=== PATIENT | female | born 1955 | race Hispanic/Latino ===

== ENCOUNTER → 2017-01-07 | Outpatient (CLI) | payer OTHER ==
[~2017-01-07] VITALS: Ht 157.5 cm; Wt 72.6 kg
[~2017-01-07] MED LIST: ACTOS15 MG PO; ACTOS30 MG PO; ADVIL200 MG PO; GLUCOPHAGE1000 MG PO; JANUVIA100 MG PO; LIPITOR20 MG PO; LISINOPRIL5 MG PO; NESINA25 MG PO; OMEPRAZOLE40 M1 PO; SIMVASTATIN40 MG PO; VITAMIN D PO
[2017-01-07 08:33] LABS: POINT-OF-CARE METER ID UU13113694
[2017-01-07 09:06] LABS: CHLORIDE 106 mEq/L (99-109); POTASSIUM 3.9 mEq/L (3.7-5.4); SODIUM 140 mEq/L (136-147)
[2017-01-07 09:07] LABS: GLUCOSE 209 mg/dL (70-99)
[2017-01-07 09:09] LABS: ANION GAP 11 MEQ/L (2-14)
[2017-01-07 09:11] LABS: GFR ESTIMATE (CALCULATED) > 59 mL/min/
[2017-01-07 09:12] LABS: UREA NITROGEN (BUN) 13 mg/dL (9-23)
[2017-01-07 11:03] LABS: POINT-OF-CARE METER ID UU13113819; POINT-OF-CARE USER ID 515036437
== END | disposition home or self-care (01) ==
LOC: AMB 07:45
PROVIDERS: Anesthesiology; Internal Medicine Gastroenterology
DX: C16.9 Malignant neoplasm of stomach, unspecified (principal); K25.9 Gastric ulcer, unspecified as acute or chronic, without hemorrhage or perforation; K86.2 Cyst of pancreas; E11.9 Type 2 diabetes mellitus without complications; E78.00 Pure hypercholesterolemia, unspecified; I10 Essential (primary) hypertension; K21.9 Gastro-esophageal reflux disease without esophagitis; Z79.84 Long term (current) use of oral hypoglycemic drugs
CPT/HCPCS: 80048; 82948; 93005; C1726; J0330; J2250; J2405; J3010

== ENCOUNTER 2017-09-02 09:12 | Emergency (ER) | payer OTHER ==
[~2017-09-02] VITALS: Ht 157.5 cm; Wt 61.9 kg
[2017-09-02 10:11] LABS: HEMATOCRIT 33.9 % (36.0-46.0); HEMOGLOBIN 11.2 G/DL (11.9-15.5); MCH 30.3 PG (29.0-34.0); MCV 91.6 FL (83-99); PLATELET COUNT 233 K/uL (156-360); RBC DIS.WIDTH-CV 13.5 % (11.8-14.6); RBC DIS.WIDTH-SD 45.3 % (39-53); WHITE BLOOD COUNT 6.3 K/uL (4.1-10.2)
[2017-09-02 10:22] LABS: ALBUMIN 4.3 g/dL (3.2-4.8); CHLORIDE 102 mEq/L (99-109); POTASSIUM 4.5 mEq/L (3.7-5.4); SODIUM 137 mEq/L (136-147)
[2017-09-02 10:25] LABS: GLUCOSE 113 mg/dL (70-99); TOTAL PROTEIN 7.6 g/dL (6.4-8.3)
[2017-09-02 10:26] LABS: TOTAL BILIRUBIN 0.4 mg/dL (0.0-1.0)
[2017-09-02 10:28] LABS: ALKALINE PHOSPHATASE 111 IU/L (3-129); CREATININE 1.1 mg/dL (0.6-1.3); GFR ESTIMATE (CALCULATED) 54 mL/min/
[2017-09-02 10:29] LABS: UREA NITROGEN (BUN) 13 mg/dL (9-23)
[2017-09-02 10:30] LABS: AST (GOT) 15 IU/L (2-34)
[2017-09-02 10:31] LABS: ALT (GPT) 11 IU/L (3-49)
[2017-09-02 11:25] LABS: APPEARANCE CLEAR ((CLEAR)); BILIRUBIN NEGATIVE; BLOOD NEGATIVE; COLOR COLORLESS ((YELLOW)); GLUCOSE (STRIP) NEGATIVE; KETONES NEGATIVE; LEUKOCYTES NEGATIVE; NITRITE NEGATIVE; PROTEIN (STRIP) NEGATIVE; SPECIFIC GRAVITY 1.017 (1.000-1.030); UCUL ADDED? NO; UROBILINOGEN 0.2 MG/DL (0.2-1.0)
[2017-09-02 11:57] VITALS: BP 115/62
== END 2017-09-02 12:37 | disposition home or self-care (01) ==
LOC: EME 09:12
DX: R18.8 Other ascites (principal); N83.9 Noninflammatory disorder of ovary, fallopian tube and broad ligament, unspecified; Z85.028 Personal history of other malignant neoplasm of stomach; E78.5 Hyperlipidemia, unspecified; E11.9 Type 2 diabetes mellitus without complications; Z79.84 Long term (current) use of oral hypoglycemic drugs; Z87.442 Personal history of urinary calculi; Z88.5 Allergy status to narcotic agent; Z88.4 Allergy status to anesthetic agent
CPT/HCPCS: 80053; 81003; 85027; 99281; 99284

== ENCOUNTER → 2017-11-11 | Outpatient (CLI) | payer OTHER ==
[~2017-11-11] MED LIST changes: +DILAUDID2 MG PO; +MS CONTIN,ORAMO15 M1 PO
== END | disposition home or self-care (01) ==
LOC: RAD 07:59
PROC: 0W9G3ZZ Drainage of Peritoneal Cavity, Percutaneous Approach (ICD-10-PCS; principal; 2017-11-11)
DX: R18.8 Other ascites (principal); C16.9 Malignant neoplasm of stomach, unspecified
CPT/HCPCS: 49083; 88108

== ENCOUNTER 2017-11-25 09:03 | Inpatient (IN) | payer OTHER ==
[~2017-11-25] VITALS: Ht 157.5 cm; Wt 55.1 kg
[2017-11-25 09:33] LABS: BASOPHIL (%) 0.3 % (0-1); EOSINOPHIL (%) 1.6 % (0-5); EOSINOPHIL COUNT 0.1 K/uL (0-0.3); HEMATOCRIT 38.9 % (36.0-46.0); HEMOGLOBIN 12.5 G/DL (11.9-15.5); IMMATURE GRANULOCYTE (%) 0.3 % (0.0-0.7); LYMPHOCYTE (%) 11.9 % (15-42); LYMPHOCYTE COUNT 0.7 K/uL (1.0-2.8); MCH 27.8 PG (29.0-34.0); MCHC 32.1 G/DL (30.0-36.0); MCV 86.4 FL (83-99); MONOCYTE (%) 3.8 % (3-12); MONOCYTE COUNT 0.2 K/uL (0-0.8); NEUTROPHIL (%) 82.1 % (45-76); PLATELET COUNT 210 K/uL (156-360); RBC DIS.WIDTH-CV 16.6 % (11.8-14.6); RBC DIS.WIDTH-SD 51.2 % (39-53); WHITE BLOOD COUNT 6.1 K/uL (4.1-10.2)
[2017-11-25 09:40] LABS: INTER. NORMALIZED RATIO 1.1
[2017-11-25 09:42] LABS: PTT 30.6 SEC (25-37)
[2017-11-25 09:44] LABS: ALBUMIN 3.8 g/dL (3.2-4.8); CHLORIDE 106 mEq/L (99-109); POTASSIUM 4.3 mEq/L (3.7-5.4); SODIUM 142 mEq/L (136-147)
[2017-11-25 09:45] LABS: MAGNESIUM 1.7 mg/dL (1.3-2.7)
[2017-11-25 09:45] LABS: APPEARANCE CLOUDY ((CLEAR)); BILIRUBIN NEGATIVE; BLOOD NEGATIVE; COLOR YELLOW ((YELLOW)); GLUCOSE (STRIP) NEGATIVE; KETONES 20; LEUKOCYTES LARGE; NITRITE NEGATIVE; PROTEIN (STRIP) 30; SPECIFIC GRAVITY 1.019 (1.000-1.030); UROBILINOGEN 0.2 MG/DL (0.2-1.0)
[2017-11-25 09:47] LABS: GLUCOSE 123 mg/dL (70-99); TOTAL PROTEIN 7.2 g/dL (6.4-8.3)
[2017-11-25 09:48] LABS: TOTAL BILIRUBIN 0.5 mg/dL (0.0-1.0)
[2017-11-25 09:50] LABS: ALKALINE PHOSPHATASE 76 IU/L (3-129); CREATININE 1.4 mg/dL (0.6-1.3); GFR ESTIMATE (CALCULATED) 41 mL/min/
[2017-11-25 09:51] LABS: UREA NITROGEN (BUN) 27 mg/dL (9-23)
[2017-11-25 09:52] LABS: AST (GOT) 17 IU/L (2-34)
[2017-11-25 09:53] LABS: ALT (GPT) 11 IU/L (3-49)
[2017-11-25 09:54] LABS: LIPASE 20 U/L (1.0-51.0)
[2017-11-25 10:35] LABS: AMORPHOUS URATES CRYSTALS 1+; BACTERIA 2+ /HPF; EPITHELIAL CELLS 2+ /HPF; HYALINE CASTS 0-5 /LPF; MUCUS NONE SEEN /LPF; RED BLOOD CELLS 0-5 /HPF (0-5); UCUL ADDED? YES; WHITE BLOOD CELLS 30-40 /HPF (0-5)
[2017-11-25 18:25] VITALS: BP 122/76
[2017-11-25 18:27] VITALS: BP 122/76
[2017-11-25 19:30] VITALS: BP 130/82
[2017-11-26 00:24] VITALS: BP 127/69
[2017-11-26 05:55] LABS: BASOPHIL (%) 0.2 % (0-1); EOSINOPHIL (%) 2.4 % (0-5); EOSINOPHIL COUNT 0.1 K/uL (0-0.3); HEMATOCRIT 34.5 % (36.0-46.0); HEMOGLOBIN 11.1 G/DL (11.9-15.5); IMMATURE GRANULOCYTE (%) 0.2 % (0.0-0.7); LYMPHOCYTE (%) 20.9 % (15-42); LYMPHOCYTE COUNT 0.9 K/uL (1.0-2.8); MCH 27.8 PG (29.0-34.0); MCHC 32.2 G/DL (30.0-36.0); MCV 86.3 FL (83-99); MONOCYTE COUNT 0.3 K/uL (0-0.8); NEUTROPHIL (%) 70.3 % (45-76); NEUTROPHIL COUNT 3.2 K/uL (1.8-6.4); PLATELET COUNT 193 K/uL (156-360); RBC DIS.WIDTH-CV 16.6 % (11.8-14.6); RBC DIS.WIDTH-SD 51.4 % (39-53); WHITE BLOOD COUNT 4.5 K/uL (4.1-10.2)
[2017-11-26 06:20] LABS: ALBUMIN 3.4 G/DL (3.2-4.8); ALKALINE PHOSPHATASE 57 IU/L (3-129); ALT (GPT) 8 IU/L (3-49); AST (GOT) 13 IU/L (2-34); DIRECT BILIRUBIN 0.1 mg/dL (0.0-0.3); TOTAL BILIRUBIN 0.3 MG/DL (0.0-1.0); TOTAL PROTEIN 5.4 G/DL (6.4-8.3)
[2017-11-26 08:12] VITALS: BP 102/63
[2017-11-26 08:42] LABS: CHLORIDE 105 MEQ/L (99-109); CREATININE 1.1 MG/DL (0.6-1.3); GFR ESTIMATE (CALCULATED) 54 mL/min/; GLUCOSE 94 mg/dL (70-99); POTASSIUM 4.3 MEQ/L (3.7-5.4); SODIUM 139 MEQ/L (136-147); UREA NITROGEN (BUN) 21 mg/dL (9-23)
[2017-11-26 11:57] VITALS: BP 116/62
[2017-11-26 16:21] VITALS: BP 113/69
[2017-11-26 19:26] VITALS: BP 109/63
[2017-11-27] VITALS: BP 112/82
[2017-11-27 06:10] LABS: BASOPHIL (%) 0.4 % (0-1); EOSINOPHIL (%) 2.4 % (0-5); EOSINOPHIL COUNT 0.1 K/uL (0-0.3); HEMATOCRIT 37.8 % (36.0-46.0); HEMOGLOBIN 11.8 G/DL (11.9-15.5); IMMATURE GRANULOCYTE (%) 0.2 % (0.0-0.7); LYMPHOCYTE (%) 34.3 % (15-42); LYMPHOCYTE COUNT 1.6 K/uL (1.0-2.8); MCH 27.2 PG (29.0-34.0); MCHC 31.2 G/DL (30.0-36.0); MCV 87.1 FL (83-99); MONOCYTE (%) 5.8 % (3-12); MONOCYTE COUNT 0.3 K/uL (0-0.8); NEUTROPHIL (%) 56.9 % (45-76); NEUTROPHIL COUNT 2.6 K/uL (1.8-6.4); PLATELET COUNT 204 K/uL (156-360); RBC DIS.WIDTH-CV 16.9 % (11.8-14.6); RBC DIS.WIDTH-SD 53.2 % (39-53); RED BLOOD COUNT 4.34 M/uL (3.80-5.20); WHITE BLOOD COUNT 4.5 K/uL (4.1-10.2)
[2017-11-27 06:38] LABS: CHLORIDE 105 MEQ/L (99-109); CREATININE 1.1 MG/DL (0.6-1.3); GFR ESTIMATE (CALCULATED) 54 mL/min/; GLUCOSE 96 mg/dL (70-99); POTASSIUM 4.5 MEQ/L (3.7-5.4); SODIUM 141 MEQ/L (136-147); UREA NITROGEN (BUN) 12 mg/dL (9-23)
[2017-11-27 07:41] VITALS: BP 105/55
[2017-11-27 16:30] VITALS: BP 114/71
[2017-11-28 05:56] LABS: BASOPHIL (%) 0.5 % (0-1); EOSINOPHIL (%) 2.2 % (0-5); EOSINOPHIL COUNT 0.1 K/uL (0-0.3); HEMATOCRIT 36.3 % (36.0-46.0); HEMOGLOBIN 11.8 G/DL (11.9-15.5); IMMATURE GRANULOCYTE (%) 0.2 % (0.0-0.7); LYMPHOCYTE (%) 31.3 % (15-42); LYMPHOCYTE COUNT 1.3 K/uL (1.0-2.8); MCH 27.9 PG (29.0-34.0); MCHC 32.5 G/DL (30.0-36.0); MCV 85.8 FL (83-99); MONOCYTE (%) 7.1 % (3-12); MONOCYTE COUNT 0.3 K/uL (0-0.8); NEUTROPHIL (%) 58.7 % (45-76); NEUTROPHIL COUNT 2.4 K/uL (1.8-6.4); PLATELET COUNT 176 K/uL (156-360); RBC DIS.WIDTH-CV 16.7 % (11.8-14.6); RBC DIS.WIDTH-SD 51.5 % (39-53); RED BLOOD COUNT 4.23 M/uL (3.80-5.20); WHITE BLOOD COUNT 4.1 K/uL (4.1-10.2)
[2017-11-28 06:22] LABS: CHLORIDE 107 MEQ/L (99-109); CREATININE 1.2 MG/DL (0.6-1.3); GFR ESTIMATE (CALCULATED) 49 mL/min/; GLUCOSE 99 mg/dL (70-99); POTASSIUM 4.7 MEQ/L (3.7-5.4); SODIUM 141 MEQ/L (136-147); UREA NITROGEN (BUN) 11 mg/dL (9-23)
[2017-11-28 07:15] VITALS: BP 112/71
[2017-11-28 16:16] VITALS: BP 120/74
[2017-11-28 22:46] VITALS: BP 104/59
[2017-11-29 06:35] LABS: BASOPHIL (%) 0.4 % (0-1); EOSINOPHIL (%) 2.7 % (0-5); EOSINOPHIL COUNT 0.1 K/uL (0-0.3); HEMATOCRIT 39.2 % (36.0-46.0); HEMOGLOBIN 12.5 G/DL (11.9-15.5); IMMATURE GRANULOCYTE (%) 0.2 % (0.0-0.7); LYMPHOCYTE (%) 33.1 % (15-42); LYMPHOCYTE COUNT 1.6 K/uL (1.0-2.8); MCH 27.5 PG (29.0-34.0); MCHC 31.9 G/DL (30.0-36.0); MCV 86.2 FL (83-99); MONOCYTE (%) 7.7 % (3-12); MONOCYTE COUNT 0.4 K/uL (0-0.8); NEUTROPHIL (%) 55.9 % (45-76); NEUTROPHIL COUNT 2.7 K/uL (1.8-6.4); PLATELET COUNT 174 K/uL (156-360); RBC DIS.WIDTH-CV 16.9 % (11.8-14.6); RBC DIS.WIDTH-SD 52.6 % (39-53); RED BLOOD COUNT 4.55 M/uL (3.80-5.20); WHITE BLOOD COUNT 4.8 K/uL (4.1-10.2)
[2017-11-29 07:00] LABS: CHLORIDE 104 MEQ/L (99-109); CREATININE 1.2 MG/DL (0.6-1.3); GFR ESTIMATE (CALCULATED) 49 mL/min/; GLUCOSE 100 mg/dL (70-99); POTASSIUM 4.4 MEQ/L (3.7-5.4); SODIUM 139 MEQ/L (136-147); UREA NITROGEN (BUN) 11 mg/dL (9-23)
[2017-11-29 07:17] VITALS: BP 114/72
[2017-11-29] MEDS ORDERED: FAMOTIDINE20 MG PO (12:14)
[2017-11-29] MEDS ORDERED: BISAC-EVAC10 MG PR (12:14)
[2017-11-29] MEDS ORDERED: SENNA PLUS TAB1 EACH PO (12:14)
[2017-11-29] MEDS ORDERED: CIPRO500 MG PO (12:14)
[2017-11-29] MEDS ORDERED: POLYETHYLENE GL17 GM PO (12:14)
[2017-11-29] MEDS ORDERED: MORPHINE SULFAT15 M1 PO (12:14)
[2017-11-29] MEDS ORDERED: Tylenol Extra Streng PO (12:14)
[2017-11-29] MEDS ORDERED: DOCUSATE SODIU100 MG PO (12:14)
== END 2017-11-29 13:32 | disposition home health service (06) | DRG 375 ==
LOC: EME 09:03 → 5EAST 14:42 → EDOF 14:42 → ENRESERV 14:43 → 5EAST 18:11
PROVIDERS: Emergency Medicine; Internal Medicine
PROC: 0W9G30Z Drainage of Peritoneal Cavity with Drainage Device, Percutaneous Approach (ICD-10-PCS; principal; 2017-11-25)
DX: C78.6 Secondary malignant neoplasm of retroperitoneum and peritoneum (principal); R18.8 Other ascites; C16.9 Malignant neoplasm of stomach, unspecified; N17.9 Acute kidney failure, unspecified; C77.9 Secondary and unspecified malignant neoplasm of lymph node, unspecified; C78.7 Secondary malignant neoplasm of liver and intrahepatic bile duct; C79.61 Secondary malignant neoplasm of right ovary; C79.62 Secondary malignant neoplasm of left ovary; E11.9 Type 2 diabetes mellitus without complications; R10.0 Acute abdomen; K59.00 Constipation, unspecified; E78.00 Pure hypercholesterolemia, unspecified; E78.5 Hyperlipidemia, unspecified; I10 Essential (primary) hypertension; K21.9 Gastro-esophageal reflux disease without esophagitis; D64.9 Anemia, unspecified; E86.0 Dehydration; Z87.442 Personal history of urinary calculi; Z90.3 Acquired absence of stomach [part of]; Z88.5 Allergy status to narcotic agent; Z88.4 Allergy status to anesthetic agent; Z85.028 Personal history of other malignant neoplasm of stomach; Z82.49 Family history of ischemic heart disease and other diseases of the circulatory system
CPT/HCPCS: 49083; 74177; 76705; 80048; 80053; 80076; 81003; 82948; 83605; 83690; 83735; 85025; 85610; 85730; 87040; 87086; 93005; 99281; 99285; J0696; J1644; J3010; J7030; J7040; S0028

== ENCOUNTER 2017-12-04 20:33 | Inpatient (IN) | payer OTHER ==
[~2017-12-04] VITALS: Ht 157.5 cm; Wt 55.2 kg
[~2017-12-04 20:33] MED LIST changes: +BISAC-EVAC10 MG PR; +CIPRO500 MG PO; +DOCUSATE SODIU100 MG PO; +FAMOTIDINE20 MG PO; +MORPHINE SULFAT15 M1 PO; +POLYETHYLENE GL17 GM PO; +SENNA PLUS TAB1 EACH PO; +Tylenol Extra Streng PO
[2017-12-04 21:53] LABS: HEMATOCRIT 39.6 % (36.0-46.0); HEMOGLOBIN 12.9 G/DL (11.9-15.5); MCHC 32.6 G/DL (30.0-36.0); MCV 86.1 FL (83-99); PLATELET COUNT 225 K/uL (156-360); RBC DIS.WIDTH-CV 17.2 % (11.8-14.6); RBC DIS.WIDTH-SD 53.3 % (39-53); WHITE BLOOD COUNT 8.8 K/uL (4.1-10.2)
[2017-12-04 22:02] LABS: ALBUMIN 3.4 g/dL (3.2-4.8); CHLORIDE 102 mEq/L (99-109); POTASSIUM 4.8 mEq/L (3.7-5.4); SODIUM 136 mEq/L (136-147)
[2017-12-04 22:05] LABS: GLUCOSE 144 mg/dL (70-99); TOTAL PROTEIN 6.5 g/dL (6.4-8.3)
[2017-12-04 22:07] LABS: TOTAL BILIRUBIN 0.3 mg/dL (0.0-1.0)
[2017-12-04 22:08] LABS: ALKALINE PHOSPHATASE 77 IU/L (3-129); GFR ESTIMATE (CALCULATED) 29 mL/min/
[2017-12-04 22:09] LABS: UREA NITROGEN (BUN) 20 mg/dL (9-23)
[2017-12-04 22:10] LABS: AST (GOT) 18 IU/L (2-34)
[2017-12-04 22:11] LABS: ALT (GPT) 8 IU/L (3-49); CREATININE 1.9 mg/dL (0.6-1.3)
[2017-12-04 23:19] LABS: TROP-I INTERPRETATION NEGATIVE; TROPONIN-I 0.01 ng/mL (0.0-0.30)
[2017-12-05 00:17] LABS: LIPASE 17 U/L (1.0-51.0)
[2017-12-05] MEDS ORDERED: PEPCID20 MG PO (00:19)
[2017-12-05] MEDS ORDERED: TYLENOL EXTRA500 MG PO (00:21)
[2017-12-05 01:33] LABS: APPEARANCE SL.HAZY ((CLEAR)); BILIRUBIN NEGATIVE; BLOOD NEGATIVE; COLOR YELLOW ((YELLOW)); GLUCOSE (STRIP) NEGATIVE; KETONES 20; LEUKOCYTES TRACE; NITRITE NEGATIVE; PROTEIN (STRIP) 30; SPECIFIC GRAVITY 1.019 (1.000-1.030); UROBILINOGEN 0.2 MG/DL (0.2-1.0)
[2017-12-05 01:54] LABS: BACTERIA NONE SEEN /HPF; EPITHELIAL CELLS 2+ /HPF; HYALINE CASTS 15-20 /LPF; MUCUS 1+ /LPF; RED BLOOD CELLS 0-5 /HPF (0-5); UCUL ADDED? YES
[2017-12-05 03:15] VITALS: BP 110/63
[2017-12-05 07:00] VITALS: BP 104/68
[2017-12-05 08:59] LABS: BASOPHIL (%) 0.2 % (0-1); EOSINOPHIL (%) 1.4 % (0-5); EOSINOPHIL COUNT 0.1 K/uL (0-0.3); HEMATOCRIT 35.9 % (36.0-46.0); HEMOGLOBIN 11.3 G/DL (11.9-15.5); IMMATURE GRANULOCYTE (%) 0.4 % (0.0-0.7); MCH 27.5 PG (29.0-34.0); MCHC 31.5 G/DL (30.0-36.0); MCV 87.3 FL (83-99); MONOCYTE (%) 7.2 % (3-12); MONOCYTE COUNT 0.4 K/uL (0-0.8); NEUTROPHIL (%) 73.8 % (45-76); NEUTROPHIL COUNT 4.1 K/uL (1.8-6.4); PLATELET COUNT 209 K/uL (156-360); RBC DIS.WIDTH-CV 17.2 % (11.8-14.6); RBC DIS.WIDTH-SD 54.8 % (39-53); RED BLOOD COUNT 4.11 M/uL (3.80-5.20); WHITE BLOOD COUNT 5.6 K/uL (4.1-10.2)
[2017-12-05 09:31] LABS: CHLORIDE 103 MEQ/L (99-109); CREATININE 1.5 MG/DL (0.6-1.3); GFR ESTIMATE (CALCULATED) 38 mL/min/; GLUCOSE 73 mg/dL (70-99); POTASSIUM 5.1 MEQ/L (3.7-5.4); SODIUM 137 MEQ/L (136-147); UREA NITROGEN (BUN) 19 mg/dL (9-23)
[2017-12-05 12:39] VITALS: BP 106/66
[2017-12-05 15:46] LABS: TYPE OF FLUID PARACENTESIS
[2017-12-05 16:14] LABS: BODY FLUID GLUCOSE 72 MG/DL; BODY FLUID LDH 108 IU/L; BODY FLUID PROTEIN 3.4 G/DL
[2017-12-05 16:19] VITALS: BP 101/60
[2017-12-05 16:23] LABS: APPEARANCE CLEAR-YELLOW; BODY FLUID EOSINOPHILS 0 % (0-25); BODY FLUID RBC'S < 1000 /MM^3 (0-100); BODY FLUID WBC'S 59 /MM^3 (0-500); MONONUCLEAR WBC'S 82 %; POLYNUCLEAR WBC'S 18 % (0-25)
[2017-12-05 20:40] VITALS: BP 138/74
[2017-12-05 23:33] VITALS: BP 108/68
[2017-12-06 03:05] VITALS: BP 1214/65; BP 124/65
[2017-12-06 05:19] LABS: HEMATOCRIT 36.1 % (36.0-46.0); HEMOGLOBIN 11.2 G/DL (11.9-15.5); MCH 27.3 PG (29.0-34.0); MCV 87.8 FL (83-99); PLATELET COUNT 194 K/uL (156-360); RBC DIS.WIDTH-CV 17.6 % (11.8-14.6); RBC DIS.WIDTH-SD 56.8 % (39-53); RED BLOOD COUNT 4.11 M/uL (3.80-5.20); WHITE BLOOD COUNT 5.9 K/uL (4.1-10.2)
[2017-12-06 06:02] LABS: ALBUMIN 2.9 G/DL (3.2-4.8); ALKALINE PHOSPHATASE 50 IU/L (3-129); ALT (GPT) 6 IU/L (3-49); AST (GOT) 13 IU/L (2-34); CHLORIDE 103 MEQ/L (99-109); CREATININE 1.4 MG/DL (0.6-1.3); GFR ESTIMATE (CALCULATED) 41 mL/min/; GLUCOSE 75 mg/dL (70-99); SODIUM 137 MEQ/L (136-147); TOTAL BILIRUBIN 0.3 MG/DL (0.0-1.0); TOTAL PROTEIN 5.5 G/DL (6.4-8.3); UREA NITROGEN (BUN) 15 mg/dL (9-23)
[2017-12-06 08:45] VITALS: BP 123/71
[2017-12-06 15:02] VITALS: BP 119/74
[2017-12-06 19:30] VITALS: BP 125/70
[2017-12-07 00:02] VITALS: BP 124/71
[2017-12-07 06:34] LABS: CHLORIDE 104 MEQ/L (99-109); CREATININE 1.1 MG/DL (0.6-1.3); GFR ESTIMATE (CALCULATED) 54 mL/min/; GLUCOSE 98 mg/dL (70-99); POTASSIUM 4.1 MEQ/L (3.7-5.4); SODIUM 137 MEQ/L (136-147); UREA NITROGEN (BUN) 13 mg/dL (9-23)
[2017-12-07 08:55] VITALS: BP 160/76
[2017-12-07 11:38] VITALS: BP 116/69
[2017-12-07 15:18] VITALS: BP 103/62
[2017-12-08 00:43] VITALS: BP 118/75
[2017-12-08 04:53] LABS: HEMATOCRIT 37.4 % (36.0-46.0); HEMOGLOBIN 12.3 G/DL (11.9-15.5); MCH 28.3 PG (29.0-34.0); MCHC 32.9 G/DL (30.0-36.0); PLATELET COUNT 217 K/uL (156-360); RBC DIS.WIDTH-CV 17.2 % (11.8-14.6); RBC DIS.WIDTH-SD 53.7 % (39-53); RED BLOOD COUNT 4.35 M/uL (3.80-5.20); WHITE BLOOD COUNT 5.2 K/uL (4.1-10.2)
[2017-12-08 07:26] VITALS: BP 98/74
[2017-12-08 11:14] VITALS: BP 117/75
[2017-12-08 15:17] VITALS: BP 119/74
[2017-12-08 19:16] VITALS: BP 114/74
[2017-12-08 23:16] LABS: BODY FLUID PH 7.9 (())
[2017-12-09 00:10] VITALS: BP 113/70
[2017-12-09 08:10] VITALS: BP 110/77
[2017-12-09] MEDS ORDERED: ONDANSETRON ODT4 MG SL (09:01)
[2017-12-09] MEDS ORDERED: MAG-AL PLUS SUS30 ML PO (09:01)
[2017-12-09] MEDS ORDERED: FENTANYL1 EAC5 TD (10:04)
[2017-12-09 11:27] VITALS: BP 126/77
== END 2017-12-09 15:20 | disposition home health service (06) | DRG 375 ==
LOC: EME 20:33 → EDOF 12-05 01:37 → ENRESERV 12-05 01:42 → 4SOUTH 12-05 03:07
PROVIDERS: Internal Medicine; Student in an Organized Health Care Education/Training Program
PROC: 0W9G3ZZ Drainage of Peritoneal Cavity, Percutaneous Approach (ICD-10-PCS; principal; 2017-12-05)
PROC: 0W9G30Z Drainage of Peritoneal Cavity with Drainage Device, Percutaneous Approach (ICD-10-PCS; 2017-12-08)
DX: C16.9 Malignant neoplasm of stomach, unspecified (principal); R18.0 Malignant ascites; N17.9 Acute kidney failure, unspecified; E44.0 Moderate protein-calorie malnutrition; C79.62 Secondary malignant neoplasm of left ovary; C79.61 Secondary malignant neoplasm of right ovary; C78.6 Secondary malignant neoplasm of retroperitoneum and peritoneum; I95.9 Hypotension, unspecified; E86.0 Dehydration; I10 Essential (primary) hypertension; E78.5 Hyperlipidemia, unspecified; E11.9 Type 2 diabetes mellitus without complications; K21.9 Gastro-esophageal reflux disease without esophagitis; Z90.3 Acquired absence of stomach [part of]; Z92.21 Personal history of antineoplastic chemotherapy; K59.00 Constipation, unspecified; Z66 Do not resuscitate; Z87.442 Personal history of urinary calculi; Z87.440 Personal history of urinary (tract) infections; Z82.49 Family history of ischemic heart disease and other diseases of the circulatory system
CPT/HCPCS: 49083; 49406; 71045; 74176; 76705; 80048; 80053; 81003; 82140; 82945; 83615 91; 83690; 83986 90; 84157; 84484; 85025; 85027; 85610; 85730; 87070; 87086; 87106; 87186 90; 87205; 89051; 93005; 99281; 99285; C1729; G0378; J0696; J2405; J3010; J7030